=== PATIENT | female | born 1950 | race Hispanic/Latino ===

== ENCOUNTER 2018-09-17 22:13 | Inpatient (IN) | payer OTHER ==
[~2018-09-17] VITALS: Ht 152.4 cm; Wt 84.2 kg
[2018-09-17 22:37] LABS: APPEARANCE,URINE CLOUDY (CLEAR); BILIRUBIN,URINE NEGATIVE (NEGATIVE); COLOR,URINE ORANGE (YELLOW); GLUCOSE, URINE (UA) NEGATIVE (NEGATIVE); KETONES,URINE 5 mg/dL (NEGATIVE); LEUKOCYTE ESTERASE ,URINE NEGATIVE (NEGATIVE); NITRATE,URINE NEGATIVE (NEGATIVE); OCCULT BLOOD,URINE LARGE (NEGATIVE); PH,URINE 6.5 (5.0-8.0); PROTEIN,URINE 30 (NEGATIVE); UROBILINOGEN,URINE 0.2 mg/dL (0.2-1.0)
[2018-09-17] MEDS ORDERED: ONDANSETRON HCL 4 MG/2 ML VIAL ONE (22:39)
[2018-09-17] MEDS ORDERED: FENTANYL CITRATE PF 50 MCG/1 ML 2ML VIAL ONE (22:39)
[2018-09-17 22:41] LABS: AMPHET/METH SCREEN,URINE NEGATIVE (NEGATIVE); BARBITURATE SCREEN, URINE NEGATIVE (NEGATIVE); BENZODIAZEPINES SCREEN,URINE NEGATIVE (NEGATIVE); CANNABINOID SCREEN,URINE NEGATIVE (NEGATIVE); COCAINE SCREEN,URINE NEGATIVE (NEGATIVE); OPIATE SCREEN,URINE NEGATIVE (NEGATIVE); PHENCYCLIDINE SCREEN,URINE NEGATIVE (NEGATIVE)
[2018-09-17 22:43] LABS: BASOPHILS % (AUTO) 0.7 % (0.0-5.0); EOSINOPHILS % (AUTO) 1.8 % (0.0-8.0); HEMATOCRIT 43.7 % (36-48); LYMPHOCYTES % (AUTO) 35.3 % (21.0-51.0); MEAN CORPUSCULAR HEMOGLOBIN 31.3 pg (27.0-33.0); MEAN CORPUSCULAR HGB CONC 35.2 g/dL (32.0-36.0); MEAN CORPUSCULAR VOLUME 88.7 fL (79-99); MONOCYTES % (AUTO) 10.2 % (3.0-13.0); PLATELET COUNT (AUTO) 108 K/uL (130-400); RED BLOOD CELL COUNT(AUTO) 4.93 MIL/uL (4.00-5.50); RED CELL DISTRIBUTION WIDTH 14.2 % (11.0-15.5); WHITE BLOOD COUNT (AUTO) 8.9 K/uL (4.8-10.8)
[2018-09-17 22:52] LABS: BACTERIA,URINE Few /HPF (None Seen); RBC,URINE TNTC /HPF (0-1)
[2018-09-17 22:57] LABS: CREATININE 0.7 mg/dL (0.5-1.5); POTASSIUM 3.3 mmol/L (3.5-5.1)
[2018-09-17 23:02] LABS: ALBUMIN 3.6 g/dL (3.5-5.0); BILIRUBIN,TOTAL 1.1 mg/dL (0.2-1.0); TOTAL PROTEIN, SERUM 7.9 g/dL (6.0-8.3)
[2018-09-17] MEDS ORDERED: KETOROLAC TROMETHAMINE 15MG/ML ONE (23:05)
[2018-09-17] MEDS ORDERED: POTASSIUM BICARB/CIT AC 25 MEQ TABLET.EFF ONE (23:21)
[2018-09-18] MEDS ORDERED: POTASSIUM CHLORIDE 20MEQ/100ML 100 ML IV PRN (00:30)
[2018-09-18] MEDS ORDERED: LIDOCAINE HCL-MPF 1% 2ML VIAL IVP PRN (00:30)
[2018-09-18] MEDS ORDERED: POTASSIUM CHLORIDE 20 MEQ ERTAB PO PRN (00:30)
[2018-09-18] MEDS ORDERED: MAGNESIUM 2GM PREMIX 50ML 50 ML IV PRN (00:30)
[2018-09-18] MEDS ORDERED: ACETAMINOPHEN 325 MG TAB PO PRN (02:30)
[2018-09-18] MEDS ORDERED: ONDANSETRON HCL MDV 20ML 2 MG/ML VIAL IV PRN (02:30)
[2018-09-18] MEDS ORDERED: ZOSYN 3.375GM+NS 50ML 50 ML IV SCH (02:30)
[2018-09-18] MEDS ORDERED: SODIUM CHLORIDE 0.9% 1000ML 1,000 ML IV ONE (03:04)
[2018-09-18] MEDS ORDERED: MAGNESIUM 2GM PREMIX 50ML 50 ML IV ONE (03:04)
[2018-09-18] MEDS ORDERED: PHARMACY COMMUNICATION MISC SCH (03:30)
[2018-09-18 04:00] VITALS: BP 123/82
[2018-09-18] MEDS: ZOSYN 3.375GM+NS 50ML 50 ML IV SCH ×2 (04:00→11:50)
[2018-09-18 06:06] LABS: BASOPHILS % (AUTO) 0.6 % (0.0-5.0); EOSINOPHILS % (AUTO) 0.9 % (0.0-8.0); LYMPHOCYTES % (AUTO) 30.2 % (21.0-51.0); MEAN CORPUSCULAR HEMOGLOBIN 30.6 pg (27.0-33.0); MEAN CORPUSCULAR HGB CONC 34.6 g/dL (32.0-36.0); MEAN CORPUSCULAR VOLUME 88.5 fL (79-99); MONOCYTES % (AUTO) 9.6 % (3.0-13.0); NEUTROPHILS % (AUTO) 58.7 % (40.0-77.0); PLATELET COUNT (AUTO) 75 K/uL (130-400); RED BLOOD CELL COUNT(AUTO) 4.53 MIL/uL (4.00-5.50); WHITE BLOOD COUNT (AUTO) 6.6 K/uL (4.8-10.8)
[2018-09-18 06:15] LABS: INR 1.14 (0.85-1.15); PARTIAL THROMBOPLASTIN TIME 30.4 SEC (26.3-35.5); PROTHROMBIN TIME 11.9 SEC (9.6-11.6)
[2018-09-18 06:17] LABS: ALBUMIN 3.1 g/dL (3.5-5.0); BILIRUBIN,TOTAL 1.5 mg/dL (0.2-1.0); CREATININE 0.8 mg/dL (0.5-1.5); POTASSIUM 3.5 mmol/L (3.5-5.1); TOTAL PROTEIN, SERUM 6.8 g/dL (6.0-8.3)
[2018-09-18] MEDS: KETOROLAC TROMETHAMINE 30MG/ML IV PRN ×3 (06:19→21:14)
[2018-09-18] MEDS: POTASSIUM CHLORIDE 10% ELIXIR 20 MEQ/15 ML UDCUP PO PRN ×2 (06:39→09:55)
[2018-09-18 07:00] VITALS: BP 125/80
[2018-09-18] MEDS ORDERED: ENOXAPARIN SODIUM 30 MG/0.3 ML SQ SCH (09:00)
[2018-09-18] MEDS: PANTOPRAZOLE SODIUM 40 MG TABLET.DR PO SCH (09:55)
[2018-09-18 11:00] VITALS: BP 166/90
[2018-09-18] MEDS: SODIUM CHLORIDE 0.9% 1000ML 1,000 ML IV SCH ×3 (13:56→21:16)
[2018-09-18 16:00] VITALS: BP 144/83
[2018-09-18 20:00] VITALS: BP 155/98
[2018-09-18] MEDS ORDERED: CEFTRIAXONE SODIUM 2 GM VIAL IVP SCH (20:00)
[2018-09-18] MEDS ORDERED: CEFTRIAXONE SODIUM 1 GM IVP SCH (20:00)
[2018-09-18] MEDS: TAMSULOSIN HCL 0.4 MG CAP.ER.24H PO SCH (20:23)
[2018-09-19] VITALS (23 sets, daily range): BP systolic 93–161; BP diastolic 55–88
[2018-09-19] MEDS: KETOROLAC TROMETHAMINE 30MG/ML IV PRN ×2 (04:31→10:08)
[2018-09-19] MEDS: SODIUM CHLORIDE 0.9% 1000ML 1,000 ML IV SCH ×3 (04:32→16:15)
[2018-09-19 06:18] LABS: CREATININE 0.5 mg/dL (0.5-1.5); POTASSIUM 4.1 mmol/L (3.5-5.1)
[2018-09-19] MEDS: PANTOPRAZOLE SODIUM 40 MG TABLET.DR PO SCH (09:00)
[2018-09-19] MEDS: TAMSULOSIN HCL 0.4 MG CAP.ER.24H PO SCH (09:00)
[2018-09-19] MEDS ORDERED: MEPERIDINE HCL/PF 25 MG/0.5 ML AMPUL IVP PRN (09:30)
[2018-09-19] MEDS: MEPERIDINE-PF 25 MG/ML SYG IVP PRN (16:15)
[2018-09-19] MEDS ORDERED: LIDOCAINE PF 2% 5ML ABBOJECT ONE (18:01)
[2018-09-19] MEDS ORDERED: DEXAMETHASONE SOD PHOSPHATE 10MG/ML 1ML VIAL ONE (18:01)
[2018-09-19] MEDS ORDERED: MIDAZOLAM HCL 1 MG/ML 2ML VIAL ONE (18:01)
[2018-09-19] MEDS ORDERED: PROPOFOL 10 MG/ML 20ML VIAL IV ONE (18:02)
[2018-09-19] MEDS ORDERED: ONDANSETRON HCL 4 MG/2 ML VIAL ONE (18:02)
[2018-09-19] MEDS ORDERED: NEOSTIGMINE 5MG/5ML SYR IV ONE (18:02)
[2018-09-19] MEDS ORDERED: FENTANYL CITRATE PF 50 MCG/1 ML 2ML VIAL ONE (18:03)
[2018-09-19] MEDS ORDERED: GLYCOPYRROLATE 1 MG/5 ML SYRINGE ONE (18:05)
[2018-09-19] MEDS ORDERED: LACTATED RINGERS 1000ML 1,000 ML IV ONE (18:27)
[2018-09-19] MEDS ORDERED: CEFTRIAXONE SODIUM 1 GM ONE (18:47)
[2018-09-19] MEDS ORDERED: IOHEXOL-350 50ML VIAL IV ONE (18:57)
[2018-09-19] MEDS ORDERED: ROCURONIUM BROMIDE 10MG/1ML 5ML VL ONE (19:19)
[2018-09-19] MEDS ORDERED: SUCCINYLCHOLINE CHLORIDE 20 MG/ML 10 ML VIAL ONE (19:19)
[2018-09-20 00:10] VITALS: BP 140/79
[2018-09-20 00:29] VITALS: BP 153/77
[2018-09-20 00:31] VITALS: BP 153/77
[2018-09-20] MEDS: SODIUM CHLORIDE 0.9% 1000ML 1,000 ML IV SCH (03:59)
[2018-09-20 04:05] VITALS: BP_SYST 143; BP_SYST 149; BP_DIAS 60; BP_DIAS 69
[2018-09-20] MEDS: KETOROLAC TROMETHAMINE 30MG/ML IV PRN (04:42)
[2018-09-20 04:57] LABS: BASOPHILS % (AUTO) 0.3 % (0.0-5.0); EOSINOPHILS % (AUTO) 0.1 % (0.0-8.0); HEMATOCRIT 36.5 % (36-48); LYMPHOCYTES % (AUTO) 24.8 % (21.0-51.0); MEAN CORPUSCULAR HEMOGLOBIN 30.9 pg (27.0-33.0); MEAN CORPUSCULAR HGB CONC 34.9 g/dL (32.0-36.0); MEAN CORPUSCULAR VOLUME 88.6 fL (79-99); MONOCYTES % (AUTO) 1.8 % (3.0-13.0); NUCLEATED RED BLOOD CELLS 0.1 % (0.0-0.19); PLATELET COUNT (AUTO) 62 K/uL (130-400); RED BLOOD CELL COUNT(AUTO) 4.12 MIL/uL (4.00-5.50); RED CELL DISTRIBUTION WIDTH 13.6 % (11.0-15.5); WHITE BLOOD COUNT (AUTO) 2.5 K/uL (4.8-10.8)
[2018-09-20 05:03] LABS: CREATININE 0.5 mg/dL (0.5-1.5)
[2018-09-20 05:44] LABS: BAND NEUTROPHILS % (MANUAL) 6 % (0-2); BASOPHILS % (MANUAL) 1 % (0-2); LYMPHOCYTES % (MANUAL) 17 % (22-44); MAN.DIFF COMMENT-IMPRESSION MANUAL DIFFERENTIAL; MONOCYTES % (MANUAL) 1 % (2-9); SEGMENTED NEUTROPHILS % 75 % (40-70)
[2018-09-20 08:15] VITALS: BP 144/85
[2018-09-20] MEDS: MEPERIDINE-PF 25 MG/ML SYG IVP PRN (08:39)
[2018-09-20] MEDS: PANTOPRAZOLE SODIUM 40 MG TABLET.DR PO SCH (08:43)
[2018-09-20] MEDS: TAMSULOSIN HCL 0.4 MG CAP.ER.24H PO SCH (08:43)
[2018-09-20] MEDS ORDERED: AMOX-426 PO (10:15)
[2018-09-20 12:11] VITALS: BP 122/70
== END 2018-09-20 12:50 | disposition home or self-care (01) | DRG 661 ==
LOC: EDH 22:13 → EDHIP 09-18 00:04 → 3CH 09-18 01:31
PROVIDERS: ADMIT Internal Medicine; ATTEND Internal Medicine
PROC: 0T778DZ Dilation of Left Ureter with Intraluminal Device, Via Natural or Artificial Opening Endoscopic (ICD-10-PCS; principal; 2018-09-19 19:22)
PROC: 0TC78ZZ Extirpation of Matter from Left Ureter, Via Natural or Artificial Opening Endoscopic (ICD-10-PCS; 2018-09-19 19:22)
DX: N13.2 Hydronephrosis with renal and ureteral calculous obstruction (principal); K57.30 Diverticulosis of large intestine without perforation or abscess without bleeding; E87.6 Hypokalemia; E83.42 Hypomagnesemia; E66.9 Obesity, unspecified; D69.6 Thrombocytopenia, unspecified; Z83.3 Family history of diabetes mellitus; Z68.36 Body mass index [BMI] 36.0-36.9, adult; Z90.710 Acquired absence of both cervix and uterus; Z90.49 Acquired absence of other specified parts of digestive tract; Z88.5 Allergy status to narcotic agent; Z82.49 Family history of ischemic heart disease and other diseases of the circulatory system; Z90.722 Acquired absence of ovaries, bilateral
CPT/HCPCS: 36415; 74176; 76000; 80048; 80053; 80305; 81001; 83735; 85025; 85610; 85730; 87088; A4218; C1758; C1769; C1894; C2617; J0330; J0696; J1100; J1885; J2001; J2175; J2250; J2405; J2543; J2704; J2710; J3010; J3475; J3490; J7030; J7120; Q9967

== ENCOUNTER 2018-10-03 18:02 | Inpatient (IN) | payer OTHER ==
[~2018-10-03] VITALS: Ht 152.4 cm; Wt 81.2 kg
[~2018-10-03 18:02] MED LIST: AMOX-426 PO
[2018-10-03 18:37] LABS: BASOPHILS % (AUTO) 0.5 % (0.0-5.0); EOSINOPHILS % (AUTO) 0.2 % (0.0-8.0); HEMATOCRIT 39.4 % (36-48); LYMPHOCYTES % (AUTO) 11.6 % (21.0-51.0); MEAN CORPUSCULAR HEMOGLOBIN 30.9 pg (27.0-33.0); MEAN CORPUSCULAR HGB CONC 35.3 g/dL (32.0-36.0); MEAN CORPUSCULAR VOLUME 87.6 fL (79-99); MONOCYTES % (AUTO) 12.7 % (3.0-13.0); PLATELET COUNT (AUTO) 141 K/uL (130-400); RED CELL DISTRIBUTION WIDTH 13.8 % (11.0-15.5); WHITE BLOOD COUNT (AUTO) 19.5 K/uL (4.8-10.8)
[2018-10-03 18:55] LABS: CREATININE 0.5 mg/dL (0.5-1.5); POTASSIUM 3.8 mmol/L (3.5-5.1)
[2018-10-03 19:01] LABS: ALBUMIN 2.8 g/dL (3.5-5.0); BILIRUBIN,TOTAL 3.1 mg/dL (0.2-1.0); TOTAL PROTEIN, SERUM 6.7 g/dL (6.0-8.3)
[2018-10-03] MEDS ORDERED: KETOROLAC TROMETHAMINE 15MG/ML ONE ×2 (19:19→20:01)
[2018-10-03 20:53] LABS: APPEARANCE,URINE CLOUDY (CLEAR); BILIRUBIN,URINE MODERATE (NEGATIVE); COLOR,URINE ORANGE (YELLOW); GLUCOSE, URINE (UA) 100 mg/dL (NEGATIVE); KETONES,URINE NEGATIVE (NEGATIVE); LEUKOCYTE ESTERASE ,URINE LARGE (NEGATIVE); NITRATE,URINE POSITIVE (NEGATIVE); OCCULT BLOOD,URINE LARGE (NEGATIVE); PROTEIN,URINE 100 (NEGATIVE); UROBILINOGEN,URINE >=8.0 mg/dL (0.2-1.0)
[2018-10-03 21:04] LABS: BACTERIA,URINE Many /HPF (None Seen); SQUAMOUS EPITHELIAL CELL,UR Few /HPF (0-2); WBC,URINE 26-50 /HPF (0-1)
[2018-10-03] MEDS ORDERED: SODIUM CHLORIDE 0.9% 50 ML IV ONE (21:04)
[2018-10-03] MEDS ORDERED: CEFTRIAXONE SODIUM 1 GM ONE (21:04)
[2018-10-03 21:05] LABS: MUCUS,URINE Few LPF (None Seen)
[2018-10-03] MEDS ORDERED: ACETAMINOPHEN 325 MG TAB PO PRN (22:00)
[2018-10-03] MEDS ORDERED: SODIUM CHLORIDE 0.9% 1000ML 1,000 ML IV SCH (22:00)
[2018-10-03] MEDS ORDERED: ONDANSETRON HCL MDV 20ML 2 MG/ML VIAL IV PRN (22:00)
[2018-10-03] MEDS: CEFTRIAXONE SODIUM 1 GM IV SCH (22:00)
[2018-10-03 23:05] VITALS: BP 131/67
[2018-10-04 04:00] VITALS: BP 109/67
[2018-10-04 04:27] LABS: BASOPHILS % (AUTO) 0.3 % (0.0-5.0); HEMATOCRIT 35.1 % (36-48); LYMPHOCYTES % (AUTO) 18.8 % (21.0-51.0); MEAN CORPUSCULAR HEMOGLOBIN 31.2 pg (27.0-33.0); MEAN CORPUSCULAR HGB CONC 35.7 g/dL (32.0-36.0); MEAN CORPUSCULAR VOLUME 87.3 fL (79-99); MONOCYTES % (AUTO) 12.7 % (3.0-13.0); NEUTROPHILS % (AUTO) 67.2 % (40.0-77.0); PLATELET COUNT (AUTO) 104 K/uL (130-400); RED BLOOD CELL COUNT(AUTO) 4.02 MIL/uL (4.00-5.50); RED CELL DISTRIBUTION WIDTH 13.8 % (11.0-15.5); WHITE BLOOD COUNT (AUTO) 10.5 K/uL (4.8-10.8)
[2018-10-04 04:45] LABS: ALBUMIN 2.1 g/dL (3.5-5.0); BILIRUBIN,TOTAL 1.5 mg/dL (0.2-1.0); CREATININE 0.6 mg/dL (0.5-1.5)
[2018-10-04] MEDS ORDERED: POTASSIUM CHLORIDE 10% ELIXIR 20 MEQ/15 ML UDCUP PO PRN (05:30)
[2018-10-04] MEDS ORDERED: LIDOCAINE HCL-MPF 1% 2ML VIAL IVP PRN (05:30)
[2018-10-04] MEDS ORDERED: POTASSIUM CHLORIDE 20MEQ/100ML 100 ML IV PRN (05:30)
[2018-10-04] MEDS: POTASSIUM CHLORIDE 20 MEQ ERTAB PO PRN ×2 (05:51→09:47)
[2018-10-04] MEDS: MORPHINE SULFATE 2 MG/ML 1ML SYG IV PRN (06:49)
[2018-10-04 07:30] VITALS: BP 111/62
[2018-10-04] MEDS ORDERED: ENOXAPARIN SODIUM 30 MG/0.3 ML SQ SCH (09:00)
[2018-10-04] MEDS: FAMOTIDINE/PF 20 MG/2 ML VIAL IV SCH ×2 (09:47→20:41)
[2018-10-04 11:00] VITALS: BP 121/63
[2018-10-04] MEDS ORDERED: GLUCAGON 1MG KIT 1 MG ML IM PRN (11:00)
[2018-10-04] MEDS ORDERED: DEXTROSE 50%-WATER 50 ML DISP.SYRIN IV PRN (11:00)
[2018-10-04] MEDS ORDERED: POTASSIUM CHLORIDE 20 MEQ ERTAB PO SCH (11:15)
[2018-10-04] MEDS: INSULIN HUMULIN R 100 UNIT/ML 3ML SQ SCH ×3 (11:51→20:39)
[2018-10-04 16:00] VITALS: BP 125/74
[2018-10-04 20:04] VITALS: BP 109/58
[2018-10-04] MEDS: CEFTRIAXONE SODIUM 1 GM IV SCH (20:41)
[2018-10-05 00:04] VITALS: BP 111/59
[2018-10-05 04:04] VITALS: BP 121/67
[2018-10-05 04:46] LABS: HEMATOCRIT 32.7 % (36-48); MEAN CORPUSCULAR HEMOGLOBIN 30.4 pg (27.0-33.0); MEAN CORPUSCULAR HGB CONC 34.2 g/dL (32.0-36.0); MEAN CORPUSCULAR VOLUME 88.8 fL (79-99); PLATELET COUNT (AUTO) 96 K/uL (130-400); RED BLOOD CELL COUNT(AUTO) 3.68 MIL/uL (4.00-5.50); RED CELL DISTRIBUTION WIDTH 13.7 % (11.0-15.5); WHITE BLOOD COUNT (AUTO) 5.8 K/uL (4.8-10.8)
[2018-10-05 04:59] LABS: CREATININE 0.5 mg/dL (0.5-1.5); POTASSIUM 4.1 mmol/L (3.5-5.1)
[2018-10-05] MEDS: INSULIN HUMULIN R 100 UNIT/ML 3ML SQ SCH ×3 (06:42→16:30)
[2018-10-05] MEDS: MORPHINE SULFATE 2 MG/ML 1ML SYG IV PRN ×2 (06:46→14:40)
[2018-10-05 07:36] VITALS: BP 116/69
[2018-10-05] MEDS: FAMOTIDINE/PF 20 MG/2 ML VIAL IV SCH (09:49)
[2018-10-05 10:03] LABS: HEMOGLOBIN A1C 7.3 % (4.0-6.0)
[2018-10-05 11:23] VITALS: BP 120/67
[2018-10-05] MEDS ORDERED: SULF1TAB42 PO (14:13)
[2018-10-05 15:44] VITALS: BP 129/69
== END 2018-10-05 17:30 | disposition home or self-care (01) | DRG 872 ==
LOC: EDH 18:02 → EDHIP 21:30 → OBSVTOIN 21:30 → 4BH 22:27
PROVIDERS: ADMIT Internal Medicine; ATTEND Internal Medicine
DX: A41.9 Sepsis, unspecified organism (principal); N13.6 Pyonephrosis; E86.1 Hypovolemia; R73.03 Prediabetes; B96.20 Unspecified Escherichia coli [E. coli] as the cause of diseases classified elsewhere; N28.1 Cyst of kidney, acquired; I10 Essential (primary) hypertension; Z87.442 Personal history of urinary calculi; Z88.1 Allergy status to other antibiotic agents; Z88.5 Allergy status to narcotic agent; Z90.49 Acquired absence of other specified parts of digestive tract; Z90.710 Acquired absence of both cervix and uterus; Z90.722 Acquired absence of ovaries, bilateral; Z83.3 Family history of diabetes mellitus; Z82.49 Family history of ischemic heart disease and other diseases of the circulatory system
CPT/HCPCS: 36415; 71045; 74176; 76770; 80048; 80053; 81001; 82948; 83036; 83605; 83735; 85025; 85027; 86140; 87040; 87077; 87088; 87186; 93005; A4218; J0696; J1815; J1885; J3480; J3490

== ENCOUNTER → 2018-11-24 | Outpatient (CLI) | payer OTHER ==
[~2018-11-24] MED LIST changes: +ALBU2.5V2 IH; -AMOX-426 PO; +IOHEXOL-350 75 ML VIAL IV ONE; +LEVO500T2 PO
== END | disposition home or self-care (01) ==
LOC: RAH 08:26
PROVIDERS: ATTEND Urology
DX: N20.0 Calculus of kidney (principal); N28.1 Cyst of kidney, acquired; M47.895 Other spondylosis, thoracolumbar region; R16.1 Splenomegaly, not elsewhere classified; R16.0 Hepatomegaly, not elsewhere classified; K57.90 Diverticulosis of intestine, part unspecified, without perforation or abscess without bleeding; I70.90 Unspecified atherosclerosis
CPT/HCPCS: 74170; Q9967

== ENCOUNTER 2023-10-05 06:25 | Day surgery (SDC) | payer MEDICARE, OTHER ==
[2023-09-19 09:51] VITALS: BP 184/82; PULSE 74; RESP 18
[2023-10-05] VITALS (12 sets, daily range): BP systolic 101–177; BP diastolic 73–95; PULSE 73–83; RESP 14–17
[~2023-10-05] VITALS: Ht 152.4 cm; Wt 75.0 kg
[~2023-10-05 06:25] MED LIST changes: +0.9%NACL 1000ML 1,000 ML IV ONE; -ALBU2.5V2 IH; +FOLI0.8T3 PO; -IOHEXOL-350 75 ML VIAL IV ONE; -LEVO500T2 PO; +ROSU10TA28 PO; +SEMA14TA2 PO; +VITAMIN B12 SL
[2023-10-05] MEDS ORDERED: PROPOFOL 10 MG/ML 20ML VIAL IV ONE (08:50)
== END 2023-10-05 10:10 | disposition home or self-care (01) ==
LOC: ENDO 06:25 → DAH 06:25 → ENDO 10:10
PROVIDERS: ATTEND Internal Medicine Gastroenterology
DX: Z12.11 Encounter for screening for malignant neoplasm of colon (principal); D12.2 Benign neoplasm of ascending colon; D12.3 Benign neoplasm of transverse colon; K57.30 Diverticulosis of large intestine without perforation or abscess without bleeding; E78.5 Hyperlipidemia, unspecified; E11.9 Type 2 diabetes mellitus without complications; Z88.6 Allergy status to analgesic agent; Z82.49 Family history of ischemic heart disease and other diseases of the circulatory system; Z83.3 Family history of diabetes mellitus; Z79.84 Long term (current) use of oral hypoglycemic drugs; Z79.899 Other long term (current) drug therapy; Z98.890 Other specified postprocedural states
CPT/HCPCS: 82948 ×2; 45385; J7030 ×2; J2704; A4620; A4215 ×2; A4223; A7002; A4222; A4221; A4663; A4216; A4606; J3490

== ENCOUNTER 2024-10-18 08:55 | Day surgery (SDC) | payer MEDICARE ==
[2024-10-15 10:20] LABS: BASOPHILS # (AUTO) 0.01 K/uL (0.00-0.20); BASOPHILS % (AUTO) 0.3 % (0.0-5.0); EOSINOPHILS # (AUTO) 0.05 K/uL (0.00-0.70); EOSINOPHILS % (AUTO) 1.6 % (0.0-8.0); IMMATURE GRANULOCYTE ABSOLUTE 0.01 K/uL (0-1); LYMPHOCYTES # (AUTO) 1.3 K/uL (1.0-4.8); LYMPHOCYTES % (AUTO) 39.8 % (21.0-51.0); MEAN CORPUSCULAR HEMOGLOBIN 31.2 pg (27.0-33.0); MEAN CORPUSCULAR HGB CONC 33.5 g/dL (32.0-36.0); MEAN CORPUSCULAR VOLUME 93.2 fL (79-99); MONOCYTES # (AUTO) 0.3 K/uL (0.1-1.0); MONOCYTES % (AUTO) 9.4 % (3.0-13.0); NEUTROPHILS # (AUTO) 1.6 K/uL (1.8-7.7); NEUTROPHILS % (AUTO) 48.6 % (40.0-77.0); PLATELET COUNT (AUTO) 77 K/uL (130-400); RED BLOOD CELL COUNT(AUTO) 4.29 MIL/uL (4.00-5.50); RED CELL DISTRIBUTION WIDTH 14.5 % (11.0-15.5); WHITE BLOOD COUNT (AUTO) 3.2 K/uL (4.8-10.8)
[2024-10-15 10:25] LABS: CREATININE 0.6 mg/dL (0.5-1.0); POTASSIUM 3.9 mmol/L (3.5-5.1)
[2024-10-15 10:27] VITALS: BP 139/71; PULSE 68; RESP 17; TEMP 97.7
--- NOTE | 2024-10-15 10:33 | EKG ---
[facility] Test Date: 2024-10-15 Test Time: 10:39:16 Pat Name: CY DUTTON Department: [facility]CLUD[facility] Room: Gender: F [employer] Dispatcher: [id number] : 1950 Requested By: ADDY BROTHERS Order Number: [id number] Reading MD: Naseem Martinez Measurements Intervals [place] Rate: 64 P: 25 GA: 174 QRS: -20 QRSD: 92 T: 73 QT: 421 QTc: 433 Interpretive Statements Sinus rhythm Compared to ECG 10/11/2018 10:02:16 Sinus tachycardia no longer present ST (T wave) deviation no longer present Electronically Signed On 10-15-2024 20:02:50 TECHNOLOGY EDUCATION INSTRUCTOR by Naseem Martinez Please click the below link to view image of tracing.
--- NOTE | 2024-10-17 16:07 | NUR ---
REPORT REPORTED PLATELET COUNT TO DR DUMONT. OK TO PROCEED. SURGICAL PROGRESS NOTE NOT REQUESTED AND OFFICE IS NOT ANSWERING. ANSWERING SERVICE ACTIVATED. PLEASE F/U IN AM
[2024-10-18] VITALS (12 sets, daily range): BP systolic 106–142; BP diastolic 52–76; PULSE 67–99; RESP 15–22; TEMP 97.5–97.8
[~2024-10-18] VITALS: Ht 152.4 cm; Wt 67.7 kg
[~2024-10-18 08:55] MED LIST changes: -0.9%NACL 1000ML 1,000 ML IV ONE; +BUPIvacaine/PF 0.5% 30ML VIAL ONE; -FOLI0.8T3 PO; +POTA15TA11 PO; -ROSU10TA28 PO; +TELM20TA8 PO; +VITAMIN B12 PO; -VITAMIN B12 SL
[2024-10-18] MEDS: ceFAZolin SODIUM 2 GM VIAL ONE (10:31)
[2024-10-18] MEDS: 0.9%NACL 1000ML 1,000 ML IV ONE (10:32)
[2024-10-18] MEDS ORDERED: LIDOCAINE 1%-EPI 1:100,000 20 ML VIAL ONE (11:21)
[2024-10-18] MEDS ORDERED: ketaMINE 50MG/ML SYRINGE 50 MG/ML DISP.SYRIN ONE (11:23)
[2024-10-18] MEDS: LIDOCAINE 1%-EPI 1:100,000 20 ML VIAL IJ ONE (11:26)
--- NOTE | 2024-10-18 12:12 | OP ---
Operative Note: DATE OF PROCEDURE: 10/18/24 SURGEON: VIOLET DUMONT DO MANAGER PRODUCT DESIGN: None ANESTHESIA: General ANESTHESIOLOGIST/HYDROGEN BRAZE FURNACE OPERATOR: LO Lubin PREOPERATIVE DIAGNOSIS: Soft tissue mass mid right chest wall POSTOPERATIVE DIAGNOSIS: Soft tissue mass mid right chest wall SYNOPSIS: None PROCEDURE: Excision Soft tissue mass mid right chest wall ESTIMATED BLOOD LOSS: 10 cc INDICATIONS: This is a 74 year old female that presented to clinic for removal of anterior chest wall mass. She has had it for many years. It began as a "blackhead" It has grown over the years. She had an episode of infection with drainage of thick white material. Treated with antibiotics. After it resolved the lesion grew back. Currently no s/s of infection. On PE this is a 5cm cystic appearing skin lesion that is well circumscribed and mobile. I recommended excision to prevent infection. I discussed the procedure with the patient in detail. All questions answered. Patient expressed understanding and agreement with plan. DESCRIPTION OF PROCEDURE: The patient was place on the operating table in the supine position. After adequate sedation an LMA was placed. Perioperative antibiotics were given. The patients chest was prepped and draped in the usual s terile fashion. A timeout was performed. Local anesthetic was infiltrated into the skin and soft tissue of the proposed excision. A 6cm elliptical skin incision was made in a transverse fashion over the center of the mass. The mass was excised from the surrounding subcutaneous tissue using a combination of sharp and electrocautery. The specimen was handed off for routine pathology. The wound was copiously irrigated with sterile saline. The deep tissues were approximated using interrupted sutures of 2-0 vicryl. The skin was approximated using 4-0 monocryl in a subcuticular fashion. The wound was dressed with dermabond. The patient tolerated the procedure well. All instrument, needle, and sponge counts were correct at the end of the procedure. The patient was aroused from sedation, LMA removed, and transferred to the post-anesthesia care unit in good condition. VIOLET DUMONT DO Oct 18, 2024 12:12
== END 2024-10-18 13:25 | disposition home or self-care (01) ==
LOC: DAH 08:55
PROVIDERS: ATTEND Student in an Organized Health Care Education/Training Program
DX: R22.2 Localized swelling, mass and lump, trunk (principal); L72.0 Epidermal cyst; I10 Essential (primary) hypertension; E11.9 Type 2 diabetes mellitus without complications; Z79.01 Long term (current) use of anticoagulants; Z98.890 Other specified postprocedural states; Z88.5 Allergy status to narcotic agent; Z79.899 Other long term (current) drug therapy
CPT/HCPCS: 80048; 85025; 86850; 86900; 86901; 36415; 93005; 11406; 12032; 82948 ×2; 88304; A6260; A4663; J3490 ×3; J7030; J0665; J0690; A4215; A4222; A4221; A4216; A4450; A4223 ×2; A4600